=== PATIENT | male | born 1995 | race Caucasian/White ===

== ENCOUNTER 2024-08-20 10:51 | Emergency (ER) | payer SELFPAY ==
[~2024-08-20] VITALS: Ht 165.1 cm; Wt 72.7 kg
[2024-08-20 10:55] VITALS: O2SAT 98
[2024-08-20] MEDS: LIDOCAINE HCL/PF 1% 10 MG/ML 5ML VIAL INFIL ONE (16:47)
[2024-08-20] MEDS: BACITRACIN ZINC OINT UDPKT TOP ONE (16:47)
[2024-08-20] MEDS: TETANUS, DIPHTHERIA, PERTUSSIS VAC/PF 0.5ML (>10YR OLD) IM ONE (16:47)
[2024-08-20] MEDS ORDERED: AMOX1TAB16 MT (17:57)
[2024-08-20 18:15] VITALS: BP 124/76; PULSE 56; RESP 18; TEMP 36.9; O2SAT 100
== END 2024-08-20 18:16 | disposition home or self-care (01) ==
LOC: ER 10:51
DX: S01.551A Open bite of lip, initial encounter (principal); W54.0XXA Bitten by dog, initial encounter; Y93.89 Activity, other specified; Y92.89 Other specified places as the place of occurrence of the external cause; Y99.8 Other external cause status
CPT/HCPCS: 40650; 99284; J2003

== ENCOUNTER 2024-09-02 22:12 | Emergency (ER) | payer SELFPAY ==
[~2024-09-02] VITALS: Ht 165.1 cm; Wt 77.7 kg
[~2024-09-02 22:12] MED LIST: AMOX1TAB16 MT
[2024-09-02 22:26] VITALS: O2SAT 97
[2024-09-02 22:27] VITALS: BP 145/79; PULSE 64; RESP 18; TEMP 36.8; O2SAT 100
== END 2024-09-03 00:22 | disposition home or self-care (01) ==
LOC: ER 22:12
DX: S01.511D Laceration without foreign body of lip, subsequent encounter (principal); X58.XXXD Exposure to other specified factors, subsequent encounter
CPT/HCPCS: 99281; Z7610